=== PATIENT | male | born 1970 | race Caucasian/White ===

== ENCOUNTER 2022-04-16 13:30 | Emergency (ER) | payer SELFPAY ==
--- OUTSIDE RECORDS SUMMARY | 2022-04-16 13:33 | XMS REPORT | Continuity of Care Document ---
:1970 Author Organization [facility] t Address [address] [place] [address] Care Team Providers Name Role Phone Pcp, Patient Does Not Have Primary Care Physician UnavailJOIE Noland Attending Clinician Unavailable LESLEE LOMAS Attending Clinician Unavailable MARGARETTE YU Attending Clinician Unavailable LAB69 Attending Clinician Unavailable Margarette Yu MD Attending Clinician [phone] ANSON ARANDA Attending Clinician Unavailable Alisa Del Cid DO Attending Clinician [phone] Tali Duque MD Attending Clinician [phone] LINDSAY LAWSON Attending Clinician Unavailable RAMESH PAIZ Attending Clinician Unavailable ANGIE METZ Attending Clinician Unavailable NU DANIEL Attending Clinician Unavailable DR SARAH FINE Attending Clinician Unavailable DR SARAH FINE Admitting Clinician Unavailable Payers Payer Name Policy Type Policy Number Effective Date Expiration Date S ource Problems This patient has no known problems. Allergies, Adverse Reactions, Alerts This patient has no known allergies or adverse reactions. Family History Family Member Diagnosis Comments Start Date Stop Date Source Natural father Diabetes Marc Hea [facility] Natural father Other [facility] Social History Social Habit Start Date Stop Date Quantity Comments Source History of tobacco Smokes tobacco [facility] use daily History SDMT 2021-11-15 2021-11-15 1 [facility] Alcohol Binge 00:00:00 00:00:00 History SDMT 2021-11-15 2021-11-15 1 [facility] Alcohol Frequency 00:00:00 00:00:00 History SDMT 2021-11-15 2021-11-15 0 [facility] Alcohol Std Drinks 00:00:00 00:00:00 Exposure to 2021-10-14 2021-10-24 Not sure [facility] SARS-CoV-2 (event) 00:00:00 19:02:00 Alcohol intake 2021-06-12 2021-06-12 Current [facility] 00:00:00 00:00:00 non-drinker of alcohol (finding) Cigarettes smoked 2021-05-13 2021-05-13 Shonda Chamorro current (pack per 00:00:00 00:00:00 day) - Reported Cigarette 2021-05-13 2021-05-13 Shonda Chamorro pack-years 00:00:00 00:00:00 Tobacco use and 2021-05-13 2021-05-13 Smokeless tobacco Macario Chamorro exposure 00:00:00 00:00:00 non-user Tobacco Comment 2014-12-24 2014-12-24 8 cigarettes/day [facility] 00:00:00 00:00:00 Sex Ass[birth year] [facility] 00:00:00 00:00:00 Smoking Status Start Date Stop Date Source Ex-smoker 2021-05-13 00:00:00 2021-05-13 00:00:00 Shonda carrilol Never smoked tobacco [facility] Smokes tobacco daily 2014-12-24 00:00:00 [facility] Medications Ordered Filled Start Stop Current Ordering Indication Dosage Frequency Signature Comments Components Source Medication Medication Date Date Medication? Clinician (SIG) Name Name Ely Yes APPLY ONE Robert ellsworth 3-04 (1) Seybold Acetonide 00:00: APPLICATIO 0.1 % 00 N BY mouth/throa DENTAL t Paste ROUTE DAILY NEEDED. Mupirocin Yes Apply 1 Kelse y (BACTROBAN) 2-21 applicatio Se ybold 2 % apply 00:00: n externally 00 topically Ointment 2 times daily APPLY TO AFFECTED AREA Amoxicillin Yes TAKE 1 Misa ey -Pot 2-21 TABLET Seybold Clavulanate 00:00: EVERY 12 875-125 MG 00 HOURS BY oral Tablet ORAL ROUTE FOR 7 DAYS. Ivermectin Yes TAKE FOUR Ke lsey 3 MG oral 2-07 (4) Seybold Tablet 00:00: TABLETS BY 00 MOUTH ONCE A DAY ON DAYS 1, 2, 8, 9, 15. clotrimazol 2022- No Apply to M ethodi e 03-[address] (LOTRIMIN) 00:00: 05:59 area [facility] % cream 00 :00 times l daily clotrimazol 2022- No Apply to M ethodi e 03-[address] (LOTRIMIN) 00:00: 05:59 area [facility] 1 % cream 00 :00 times l daily Acyclovir Yes 400mg Take 400 Brian sey 400 MG oral 1-29 mg by Seybold Tablet 00:00: mouth 3 00 times daily TRIMETHOPRI Yes TAKE ONE Ke lsey M-SULFAMETH 1-29 TABLET BY sebastián bold OXAZOLE 00:00: MOUTH 800-160 MG 00 TWICE A oral Tablet DAY (FOR INFECTION) lisinopril 2014-02 Yes Medication 20mg QD Take 1 Marc (PRINIVIL) 1-12 refill tablet by alth 20 mg 00:00: mouth tablet 00 daily. acetaminoph 2014-02 Yes Nonintracta 500mg Take 1 Marc en 1-12 ble tablet by [facility] (TYLENOL) 00:00: headache, mouth 500 mg 00 unspecified every 6 tablet chronicity hours as pattern, needed for unspecified Pain. headache type lisinopril 2014-02 Yes [id number] 20mg QD Take 1 Marc (PRINIVIL) 1-12 tablet by [facility] th 20 mg 00:00: mouth tablet 00 daily. acetaminoph 2014-02 Yes [id number] 500mg Take 1 Marc en 1-12 tablet by [facility] (TYLENOL) 00:00: mouth 500 mg 00 every 6 tablet hours as needed for Pain. Vital Signs Vital Name Observation Time Observation Value Comments Source Systolic blood 2021-10-21 151 mm[Hg] Notified RAKESH Marc [facility] pressure 17:50:00 (Fariba) about BP Diastolic blood 2021-10-21 102 mm[Hg] Notified RAKESH Marc [facility] h pressure 17:50:00 (Fariba) about BP Heart rate 2021-10-21 81 /min [facility] 17:50:00 Body temperature 2021-10-21 36.56 Cathy [facility] 17:50:00 Respiratory rate 2021-10-21 18 /min [facility] 17:50:00 Oxygen saturation 2021-10-21 99 /min [facility] in Arterial blood 17:50:00 by Pulse oximetry Body height 2021-10-21 167.6 cm [facility] 13:35:00 Body weight 2021-10-21 72.576 kg [facility] 13:35:00 BMI 2021-10-21 25.82 kg/m2 [facility] 13:35:00 Systolic blood 2021-10-21 151 mm[Hg] Notified RAKESH [facility] pressure 17:50:00 (Fariba) about BP Diastolic blood 2021-10-21 102 mm[Hg] Notified RAKESH Marc [facility] h pressure 17:50:00 (Fariba) about BP Heart rate 2021-10-21 81 /min [facility] 17:50:00 Body temperature 2021-10-21 36.56 Cathy [facility] 17:50:00 Respiratory rate 2021-10-21 18 /min [facility] 17:50:00 Oxygen saturation 2021-10-21 99 /min [facility] in Arterial blood 17:50:00 by Pulse oximetry Body height 2021-10-21 167.6 cm [facility] 13:35:00 Body weight 2021-10-21 72.576 kg [facility] 13:35:00 BMI 2021-10-21 25.82 kg/m2 [facility] 13:35:00 Systolic blood 2021-05-13 138 mm[Hg] Shonda Conner d pressure 15:16:00 Diastolic blood 2021-05-13 80 mm[Hg] Shonda Beaulieu ld pressure 15:16:00 Heart rate 2021-05-13 102 /min Shonda [facility] 15:16:00 Body temperature 2021-05-13 36.72 Cathy Shonda [facility]illi[facility] 15:16:00 Respiratory rate 2021-05-13 17 /min Shonda Mcwilliams old 15:16:00 Body height 2021-05-13 167.6 cm Shonda Chamorro 15:16:00 Body weight 2021-05-13 68.856 kg Shonda Chamorro 15:16:00 BMI 2021-05-13 24.50 kg/m2 Shonda Chamorro 15:16:00 Systolic blood 2021-10-25 168 mm[Hg] RN [facility] pressure 03:21:00 NOTIFIED Diastolic blood 2021-10-25 112 mm[Hg] RN [facility] h pressure 03:21:00 NOTIFIED Heart rate 2021-10-25 89 /min [facility] 03:21:00 Body temperature 2021-10-25 36.67 Cathy [facility] 03:21:00 Respiratory rate 2021-10-25 18 /min [facility] 03:21:00 Oxygen saturation 2021-10-25 100 /min [facility] in Arterial blood 03:21:00 by Pulse oximetry Body height 2021-10-24 167.6 cm [facility] 19:06:00 Body weight 2021-10-24 72.6 kg [facility] 19:06:00 BMI 2021-10-24 25.83 kg/m2 [facility] 19:06:00 Systolic blood 2021-03-21 156 mm[Hg] [facility] pressure 05:28:00 Hospital Diastolic blood 2021-03-21 92 mm[Hg] [facility] pressure 05:28:00 Hospital Heart rate 2021-03-21 98 /min [facility] 05:28:00 Hospital Body temperature 2021-03-21 36.61 Cathy [facility] 05:28:00 Hospital Respiratory rate 2021-03-21 18 /min [facility] 05:28:00 Hospital Oxygen saturation 2021-03-21 99 /min [facility] in Arterial blood 05:28:00 Hospital by Pulse oximetry Body height 2021-03-21 167.6 cm [facility] 04:54:00 Hospital Body weight 2021-03-21 68.04 kg [facility] 04:54:00 Hospital BMI 2021-03-21 24.21 kg/m2 [facility] 04:54:00 Hospital Procedures Procedure Date / Time Performed Performing Clinician Sourscar vega ED REFERRAL TO [place] 2021-03-08 11:01:42 Tali Duque [facility] [employer] Plan of Care Planned Activity Planned Date Details Comments Source Future Scheduled Test 2021-11-12 00:00:00 IMM Influenza [facility] Seasonal (>/= 19 yrs) [code = IMM Influenza Seasonal (>/= 19 yrs)] Future Scheduled Test 2019-12-14 00:00:00 Screening for [facility] malignant neoplasm of colon (procedure) [code = 446373904] Future Scheduled Test 1971-06-12 00:00:00 COVID-19 Vaccine (#1) [facility] [code = COVID-19 Vaccine (#1)] Future Scheduled Test 1970 00:00:00 Fluoride Varnish [facility] [code = Fluoride Varnish] Encounters Start End Encounter Admission Attending Care Care Encounter Source Date/Time Date/Time Type Type Clinicians Facility Department ID 2021-10-27 Outpatient [facility] [id number] [place] 15:18:24 [id number] [facility] 2021-10-06 Outpatient SBC [facility] [id number] 08:49:03 [id number] [facility] 2021-09-28 Outpatient [facility] [id number] 08:16:03 [facility] 2021-10-26 2021-10-28 Emergency E PATY CRUZITO [facility] [id number] [place] 17:29:00 18:29:00 JOIE jackson 2021-10-24 2021-10-25 Emergency [facility] [id number] [place] 19:07:42 08:39:00 [facility] 2021-10-21 2021-10-21 Emergency DAKOTAH ARUNA [id number] [place] 13:33:00 23:41:00 GENERAL 350.1.13.43 [facility] .[id number] 2021-10-21 Emergency [facility] [id number] [place] 13:33:00 23:41:00 [facility] 2021-07-14 2021-07-14 Emergency E ABEBE [facility] [id number] [place] 05:43:00 06:36:00 LESLEE jackson 2021-06-02 2021-06-02 Outpatient PRASHANT-LATI SHONDA MORILLO [id number] Sh[place] 00:00:00 00:00:00 TODD, Seybol d MARGARETTE 2021-05-30 2021-05-30 Outpatient PRASHANT-LATI SHONDA MORILLO [id number] Shonda 00:00:00 00:00:00 TODD, Seybol d MARGARETTE 2021-05-19 2021-05-19 Outpatient LAB69 SHONDA MORILLO [id number] [place] 15:50:00 15:50:00 Seybol d 2021-05-17 2021-05-17 Outpatient PRASHANT-LATI SHONDA MORILLO [id number] Shonda 00:00:00 00:00:00 TODD, Seybol d MARGARETTE 2021-05-13 2021-05-13 Outpatient LAB69 SHONDA MORILLO [id number] [place] 11:45:00 11:45:00 Seybol d 2021-05-13 2021-05-13 Office Prashant-Shalini [place] [id number] Shonda 10:30:00 11:30:00 Visit Grand todd 350.1.13.13 Se jose Pfeiffer [place] 1.2.7.2.686 [id number] 2021-04-07 2021-04-07 Emergency E MANOJ [facility] [id number] 12:30:00 16:16:00 ANSON jackson [facility] 2021-03-20 2021-03-20 Emergency Nehemias Alisamiguelangel Jarquin [id number] Methodi 22:56:00 23:30:[address] Duque [id number] 3.430.2.7 Hospit a .3.414984 l .8 2021-03-20 2021-03-20 Travel 1.2.840.1 [id number] Methodi 00:00:00 00:00:[address] 3.430.2.7 0.2.7.3.698 Ho spita .[id number] 084.8 l .8 2021-03-08 2021-03-08 Emergency Dunia, 1.2.840.1 [id number] [facility] 04:07:00 05:14:[address] [facility] 3.430.2.7 Hospit a .[id number] l .8 2020-08-08 2020-08-08 Emergency E RENNY, [facility] [address] 08:57:00 10:44:00 LINDSAY Ordoñez l [facility] 2020-08-03 2020-08-03 Emergency CHENCHO, [facility] [id number] [place] 00:00:00 00:00:00 AATIF 398 Method i 2020-07-31 2020-07-31 Emergency [place] [id number] [place] 00:00:00 00:00:00 546 Method i 2020-07-30 2020-07-30 Emergency [place] [id number] [place] 00:00:00 00:00:00 764 Method i 2020-07-18 2020-07-18 Emergency E LASHAY [facility] [id number] [place] 05:23:00 06:35:00 ANGIE Ordoñez l 2020-04-07 2020-04-07 Emergency E FREDY [facility] [id number] [place] 08:06:00 09:42:00 NU Ordoñez l 2016-06-04 2016-06-04 Emergency E SARAH FINE [facility] [id number] [place] 03:02:00 05:10:00 Medica l Center Results Test Description Test Time Test Comments Results Result Comments Source DRUGS OF ABUSE 2016-06-04 05:09:00 Test Item Value Reference Range Interpretation Comme nts DRUG SCRN (test code = HDOA) URINE DRUG SCREEN This is an unconfirmed screening result and should not be used for non-medical purposes CANNABINOD (test code = 88C) Negative NEGATIVE AMPHETHETM (test code = 84A) Negative NEGATIVE BENZODIAZP (test code = 86A) Negative NEGATIVE BARBITURAT (test code = 85A) Negative NEGATIVE OPIATES (test code = 92B) Negative NEGATIVE COCAINE (test code = 87A) POSITIVE NEGATIVE A PHENCYCLID (test code = 66A) Negative NEGATIVE METHADONE (test code = 64A) Negative NEGATIVE DOAH (test code = DOAH) URINE DRUG SCREEN Cut-off values are as follows: Cannabinoids 50 ng/mL Cocaine 300 ng/mL Amphetamines 1000 ng/mL Phencyclidine 25 ng/mL Benzodiazepines 200 ng.mL Methadone 300 ng/mL Barbiturates 200 ng/mL Opiates 2000 ng/mL [id number] 05:06:00 Test Item Value Reference Range Interpretation Comments COLOR (test code = COLU) YELLOW YELLOW CLARITY (test code = CLA) CLEAR CLEAR GLUCOSE UR (test code = UA GLUCOSE) NEGATIVE NEGATIVE BILI UR (test code = BILE) NEGATIVE NEGATIVE KETONES UR (test code = JENY) NEGATIVE NEGATIVE SP GRAVITY (test code = SPGR) 1.012 1.005-1.030 PH UR (test code = PH) 6.0 4.5-8.0 PROTEIN UR (test code = PU) NEGATIVE NEGATIVE UROBIL UR (test code = UROQ) 1.0 EU/dL 0.2-1.0 NITRITE UR (test code = NITRITE) NEGATIVE NEGATIVE BLOOD UR (test code = UA BLOOD) NEGATIVE NEGATIVE LEUK ES UR (test code = LEUK) NEGATIVE NEGATIVE ALCOHOL BLOOD (ETOH)2016-06-04 04:26:00 Test Item Value Reference Range Interpretation Comments ALCOHOL (test code = <10 mg/dL <=10 56A) Ref Range Change (test Please note the code = REF RANGE) change in reference range COMPREHENSIVE METABOLIC [id number] 04:26:00 Test Item Value Reference Range Interpretation Comments GLUCOSE (test code = 06D) 100 mg/dL 75-100 SODIUM (test code = 01A) 138 mmol/L 136-145 POTASSIUM (test code = 01B) 3.2 mmol/L 3.6-5.1 L CHLORIDE (test code = 04A) 105 mmol/L 98-107 CO2 (test code = 02A) 25 mmol/L 22-32 ANION GAP (test code = ANG) 11.2 mmol/L BUN (test code = 05D) 13 mg/dL 7-18 CREATININE (test code = 03E) 1.0 mg/dL 0.7-1.3 BUN/CREA R (test code = BCR) 13 12-20 CALCIUM (test code = 09D) 8.7 mg/dL 8.3-9.5 BILI TOTAL (test code = 11A) 0.5 mg/dL 0.2-1.0 PROTEIN (test code = 07D) 6.8 g/dL 6.4-8.2 ALBUMIN (test code = 08D) 4.1 g/dL 3.5-4.8 GLOBULIN (test code = GLB) 2.7 g/dL 1.5-3.8 ALB/GLOB (test code = AGRR) 1.5 1.0-2.6 ALK PHOS (test code = 35A) 84 IU/L 42-121 AST (test code = 30A) 14 IU/L <=42 ALT (test code = 31A) 13 IU/L <=78 CARDIAC [id number] 04:20:00 Test Item Value Reference Range Interpretation Comments TROPONIN I (test code = A84) <0.015 ng/mL 0.000-0.045 CKMB (test code = A49) 2.9 ng/mL <=3.6 CPK (test code = 32A) 119 IU/L 39-308 [id number] 04:04:00 Test Item Value Reference Range Interpretation Comments D-DIMER (test code = <200 ng/mL D-DU 0-234 DDI) D-DIMER COMMENT (test *Level to rule out code = DDCOM) DVT or PE: <235 ng/mL D-DU* PRO TIME AND [id number] 04:04:00 Test Item Value Reference Range Interpretation Comments PT (test code = 12.0 s 9.8-13.6 TT) INR (test code = 1.1 INR) INRH (test code = SUGGESTED THERAPEUTIC INRH) RANGE FOR INR: 2.5 - 3.5 For Patients with Prosthetic Valves or Patients with recurrent Thromboembolic Events 2.0 - 3.0 For Most Other Applications PTT (test code = 33.1 s 20.2-38.0 PTT) PTTH (test code = To monitor the PTTH) effectiveness of heparin, we offer the Anti-Xa (Heparin Assay). It can be used for either unfractinated or LMW Heparin. Order Code is ANTI-XA CBC (INCLUDES AUTOMATED DIFFERENTIAL)2016-06-04 03:56:00 Test Item Value Reference Range Interpretation Comments WBC (test code = WBC) 8.2 10\S\3/uL 4.5-11.0 RBC (test code = RBC) 3.86 10\S\6/uL 4.20-5.60 L HGB (test code = HBG) 12.3 g/dL 14.0-18.0 L HCT (test code = HCT) 35.5 % 35.0-46.0 MCV (test code = MCV) 92.0 fL 80.0-94.0 MCH (test code = MCH) 31.9 pg 27.0-31.0 H MCHC (test code = MCHC) 34.6 g/dL 32.0-36.0 RDW (test code = RDW) 12.6 % 11.5-14.5 PLT (test code = PLT) 242 10\S\3/uL 130-400 MPV (test code = MPV) 9.2 fL 9.4-12.4 L NEUTROP # (test code = NE#) 4.9 10\S\3/uL 2.0-8.0 LYMPH # (test code = LY#) 2.4 10\S\3/uL 1.2-4.0 MONOCYTE # (test code = MO#) 0.5 10\S\3/uL 0.0-1.1 EOSINOPH # (test code = EO#) 0.3 10\S\3/uL 0.0-0.7 BASOPHIL # (test code = BA#) 0.0 10\S\3/uL 0.0-0.3 IG # (test code = IG#) 0.01 10\S\3/uL 0.00-0.06 NRBC # (test code = NRBC#) 0.00 10\S\3/uL 0.00-0.01 NEUTROPH % (test code = NE%) 60.4 % 35.0-73.0 LYMPH % (test code = LY%) 29.3 % 20.0-55.0 MONO % (test code = MO%) 6.6 % 2.5-10.0 EOSINOPH % (test code = EO%) 3.1 % 0.0-5.0 BASOPHIL % (test code = BA%) 0.5 % 0.0-2.0 IG % (test code = IG%) 0.1 % 0.0-0.8 NRBC% (test code = NRBC%) 0.0 % 0.0-0.2 MANDIFF (test code = MDIFF) NO NO RBC MORPH (test code = RBCMOR) NORMAL XR CHEST 1 VIEW [id number] 03:42:38CHEST RADIOGRAPH: After hours services performed at 0327 hours. LOCATION: [id number]: Chest pain.C OMPARISON: 12/30/15.TECHNIQUE: Single portable AP radiograph of the chest.FINDINGS:No focal airspaceconsolidation or pneumothorax is visualized. Thecardiomediastinal silhouette is normal.IMPRESSION:Noacute cardiopulmonary disease.
--- NOTE | 2022-04-16 14:02 | EDPHYS ---
Physician Documentation [facility] Name: Blue Rodriguez Age: 51 yrs Sex: Male : 1970 Arrival Date: 04/16/2022 Time: 13:32 Bed 11 Private MD: ED Physician Som Murillo HPI: 04/16 13:57 This 51 yrs old Male presents to ER via Ambulatory with complaints of toothache. en 13:57 51-year-old male presents to ED with right sided maxillary dental pain. Patient has en upper dentures that are not fitting correctly and rubbing upper side of his mouth. Reports pain to the right side of the maxilla radiating up into his cheek. No fevers or chills. No facial swelling. No trouble opening or closing his mouth. Historical: - Allergies: 13:42 No Known Allergies; jl7 - Home Meds: 13:42 None [Active]; jl7 - PMHx: 13:42 None; jl7 - PSHx: 13:42 None; jl7 - Immunization history:: Adult Immunizations not up to date. - Social history:: Smoking status: Patient denies any tobacco usage or history of. ROS: 13:57 Constitutional: Negative for fever, chills, and weight loss. en 13:57 ENT: Positive for Teeth pain 13:57 All other systems are negative. Exam: 13:57 Constitutional: This is a well developed, well nourished patient who is awake, alert, en and in no acute distress. Head/Face: No facial swelling, erythema ENT: Airway patent, mucous membranes moist. No trismus. Patient with upper dentures that are slightly loose. Unable to evaluate the maxillary teeth bed secondary to the dentures but no abscess to the gumline appreciated and no induration above the cheek Cardiovascular: Regular rate and rhythm with a normal S1 and S2. No gallops, murmurs, or rubs. Normal PMI, no JVD. No pulse deficits. Respiratory: Lungs have equal breath sounds bilaterally, clear to auscultation and percussion. No rales, rhonchi or wheezes noted. No increased work of breathing, no retractions or nasal flaring. Vital Signs: 13:41 BP 146 / 89; Pulse 96; Resp 17 S; Temp 98.5(O); Pulse Ox 100% on R/A; Weight 72.57 kg; jl7 Height 5 ft. 6 in. (167.64 cm); Pain 10/10; 13:41 Body Mass Index 25.82 (72.57 kg, 167.64 cm) jl7 MDM: 13:52 Patient medically screened. en 13:57 Differential diagnosis: Abdominal to genic abscess versus other infection created from en malfitting dentures versus irritation from the dentures. Data reviewed: vital signs, nurses notes, and as a result, I will discharge patient. ED course: Spoke with patient regarding need to follow-up with dentist and to avoid placing dentures and until able to follow-up. Will give dose of antibiotics in the ED to treat occult infection.. Administered Medications: 14:02 Drug: Tylenol 1000 mg Route: PO; 7 14:02 Follow up: Response: No adverse reaction; Medication administered at discharge. jl7 14:02 Drug: Amoxicillin 500 mg Route: PO; 7 14:02 Follow up: Response: Medication administered at discharge. 7 Disposition: 14:22 Co-signature as Attending Physician, Som Murillo MD I agree with the assessment and kdr plan of care. Disposition Summary: 04/16/22 14:01 Discharge Ordered Location: Home en Condition: Stable en Diagnosis - Dental pain en Followup: en - With: Private Physician - When: 1 - 2 days - Reason: Re-evaluation by your physician Discharge Instructions: - Discharge Summary Sheet en - Dental Pain en Forms: - Medication Reconciliation Form en - Thank You Letter en - Antibiotic Education en - Prescription Opioid Use en Prescriptions: - Amoxicillin 500 mg Oral Capsule - take 1 capsule by ORAL route every 8 hours for 10 days; 30 tablet; Refills: 0, en Product Selection Permitted - Ibuprofen 800 mg Oral Tablet - take 1 tablet by ORAL route every 8 hours As needed take with food; 30 tablet; en Refills: 0, Product Selection Permitted Signatures: Som Murillo MD MD kdr Leal, Jahala, RN RN jl7 Janiya Gramajo PA PA en
--- NOTE | 2022-04-16 14:02 | ER ---
Nurse's Notes [facility] Name: Blue Rodriguez Age: 51 yrs Sex: Male : 1970 Arrival Date: 04/16/2022 Time: 13:32 Bed 11 Private MD: Diagnosis: Dental pain Presentation: 04/16 13:41 Chief complaint: Patient states: Abscess tooth to right upper jaw, pain since Sunday. jl7 Coronavirus screen: At this time, the client does not indicate any symptoms associated with coronavirus-19. Ebola Screen: No symptoms or risks identified at this time. Initial Sepsis Screen: Does the patient meet any 2 criteria? No. Patient's initial sepsis screen is negative. Does the patient have a suspected source of infection? No. Patient's initial sepsis screen is negative. Risk Assessment: Do you want to hurt yourself or someone else? Patient reports no desire to harm self or others. Onset of symptoms was April 14, 2022. 13:41 Method Of Arrival: Ambulatory jl7 13:41 Acuity: KYUNG 4 jl7 Triage Assessment: 13:42 General: Appears in no apparent distress. uncomfortable, Behavior is calm, cooperative, jl7 appropriate for age. Pain: Complains of pain in mouth Pain currently is 10 out of 10 on a pain scale. Historical: - Allergies: 13:42 No Known Allergies; jl7 - Home Meds: 13:42 None [Active]; jl7 - PMHx: 13:42 None; jl7 - PSHx: 13:42 None; jl7 - Immunization history:: Adult Immunizations not up to date. - Social history:: Smoking status: Patient denies any tobacco usage or history of. Screenin:02 [facility] ED Fall Risk Assessment (Adult) History of falling in the last 3 months, jl7 including since admission No falls in past 3 months (0 pts). Abuse screen: Denies threats or abuse. Denies injuries from another. Nutritional screening: No deficits noted. Tuberculosis screening: No symptoms or risk factors identified. Assessment: 13:40 General: See triage. jl7 14:16 Reassessment: Pt requested for ERP to write a Rx for a few tramadol to get through jl7 until he can see the dentist, ERP notified and reports she does not write pain medications for tooth pain. Pt updated and verbalized understanding. Vital Signs: 13:41 BP 146 / 89; Pulse 96; Resp 17 S; Temp 98.5(O); Pulse Ox 100% on R/A; Weight 72.57 kg; jl7 Height 5 ft. 6 in. (167.64 cm); Pain 10/10; 13:41 Body Mass Index 25.82 (72.57 kg, 167.64 cm) jl7 ED Course: 13:32 Patient arrived in ED. am2 13:41 Richard Lopez RN is Primary Nurse. jl7 13:41 Janiya Gramajo PA is PHCP. en 13:41 Som Murillo MD is Attending Physician. en 13:42 Triage completed. jl7 13:42 Arm band placed on right wrist. jl7 14:02 Patient has correct armband on for positive identification. jl7 14:02 No provider procedures requiring assistance completed. Patient did not have IV access jl7 during this emergency room visit. Administered Medications: 14:02 Drug: Tylenol 1000 mg Route: PO; jl7 14:02 Follow up: Response: No adverse reaction; Medication administered at discharge. jl7 14:02 Drug: Amoxicillin 500 mg Route: PO; jl7 14:02 Follow up: Response: Medication administered at discharge. jl7 Medication: 14:02 VIS not applicable for this client. jl7 Outcome: 14:01 Discharge ordered by . en 14:16 Discharged to home ambulatory. jl7 14:16 Condition: stable 14:16 Discharge instructions given to patient, Instructed on discharge instructions, follow up and referral plans. medication usage, Demonstrated understanding of instructions, follow-up care, medications, Prescriptions given X 2. 14:18 Patient left the ED. jl7 Signatures: Richard Lopez RN RN jl7 Linette Miranda am2 Janiya Gramajo PA PA en
[2022-04-16] MEDS ORDERED: ACETAMINOPHEN 500 MG TAB ONE (14:03)
[2022-04-16] MEDS ORDERED: AMOXICILLIN TRIHYDR 250 MG CAP ONE (14:03)
[2022-04-16 14:23] VITALS: BP 146/89; TEMP 98.5; O2SAT 100
== END 2022-04-16 14:18 | disposition home or self-care (01) ==
LOC: ER 13:30
DX: K08.89 Other specified disorders of teeth and supporting structures (principal)
CPT/HCPCS: 99283

== ENCOUNTER 2022-11-27 21:46 | Emergency (ER) | payer SELFPAY ==
--- OUTSIDE RECORDS SUMMARY | 2022-11-27 22:09 | XMS REPORT | Continuity of Care Document ---
:1970 Author Organization [facility] t Address [address] [place] [address] Care Team Providers Name Role Phone Group[facility] [phone] VIOLETA PRESTON Attending Clinician Unavailable JOIE NEWMAN Attending Clinician Unavailable LESLEE LOMAS Attending Clinician Unavailable MARGARETTE YU Attending Clinician Unavailable LAB69 Attending Clinician Unavailable Margarette Yu MD Attending Clinician [phone] ANSON ARANDA Attending Clinician Unavailable Alisa Del Cid DO Attending Clinician [phone] Tali Duque MD Attending Clinician [phone] LINDSAY LAWSON Attending Clinician Unavailable RAMESH PAIZ Attending Clinician Unavailable ANGIE METZ Attending Clinician Unavailable NU DANIEL Attending Clinician Unavailable DR SARAH FINE Attending Clinician Unavailable DR SRAAH FINE Admitting Clinician Unavailable Payers Payer Name Policy Type Policy Number Effective Date Expiration Date S ource Problems Condition Condition Condition Status Onset Resolution Last Treating Co mments Source Name Details Category Date Date Treatment Clinician Date Opiate Opiate Disease Active Marc dependence dependence 08-28 He alth , , 00:00: continuous continuous 00 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 Family History Family Member Diagnosis Comments Start Date Stop Date Source Natural mother Hypertension [facility] Natural sister Alcohol/Drug [place] [facility] Natural sister Drug abuse [facility] Natural father Diabetes [facility] Natural father Other [facility] Natural father Hypertension [place] [facility] Natural brother Bipolar disorder [facility] Natural brother Diabetes [facility] Natural brother Alcohol/Drug [facility] Natural brother Drug abuse [place] [facility] Maternal aunt Cancer [facility] Maternal uncle Cancer [place] [facility] Social History Social Habit Start Date Stop Date Quantity Comments Source History of tobacco Cigarette Smoker [facility] use Sexual orientation Method [facility] Cigarettes smoked 2021-11-15 2021-11-15 [facility] current (pack per 00:00:00 00:00:00 day) - Reported Cigarette 2021-11-15 2021-11-15 [facility] pack-years 00:00:00 00:00:00 Tobacco use and 2021-11-15 2021-11-15 Smokeless [facility] alth exposure 00:00:00 00:00:00 tobacco non-user History [facility] 2021-11-15 2021-11-15 1 formerly [facility] Alcohol Frequency 00:00:00 00:00:00 History [facility] 2021-11-15 2021-11-15 0 formerly [facility] Alcohol Std Drinks 00:00:00 00:00:00 History [facility] 2021-11-15 2021-11-15 1 formerly [facility] Alcohol Binge 00:00:00 00:00:00 Alcohol Comment 2021-11-15 2021-11-15 Sober x25 years [facility] 00:00:00 00:00:00 Exposure to 2021-10-11 2021-10-21 Not sure [facility] SARS-CoV-2 (event) 00:00:00 13:33:00 Alcohol intake 2021-03-20 2021-03-20 [facility] 00:00:00 00:00:00 non-drinker Hospital (finding) History of Social 2021-03-20 2021-03-[address] function 00:00:00 00:00:00 Hospital Tobacco Comment 2014-12-24 2014-12-24 8 cigarettes/day Hermelindo [facility] 00:00:00 00:00:00 Sex Ass[birth year] At [birth year] [facility] 00:00:00 00:00:00 [facility] Smoking Status Start Date Stop Date Source Ex-smoker 2021-05-13 00:00:00 2021-05-13 00:00:00 Shonda carrillo Never smoked tobacco [facility] Smokes tobacco daily 2014-12-24 00:00:00 [facility] Medications Ordered Filled Start Stop Current Ordering Indication Dosage Frequency Signature Comments Components Source Medication Medication Date Date Medication? Clinician (SIG) Name Name venlafaxine Yes Other 37.5mg Q.5D Take 1 H arris (EFFEXOR) 2-10 depression tablet by [employer] 37.5 mg 00:00: mouth 2 tablet 00 times daily hydrOXYzine Yes Unspecified 25mg Take 1 Vtap (ATARAX) 25 2-10 psychosis tablet by [facility] mg tablet 00:00: not due to mouth 00 a substance every 6 or known hours as physiologic needed for al Anxiety condition diphenhydrA Yes Unspecified 50mg Take 1 [place] MINE 2-10 psychosis capsule by [facility] (BENADRYL) 00:00: not due to mouth 50 mg 00 a substance nightly at capsule or known bedtime as physiologic needed al (Sleep and condition EPS prophylaxi s) risperiDONE Yes Unspecified .5mg Take 1 [facility]tap (RISPERDAL) 2-10 psychosis tablet by [facility] 0.5 mg 00:00: not due to mouth at tablet 00 a substance bedtime or known nightly physiologic al condition hydrOXYzine 2022- No Unspecified 25mg Take 1 Vtap (ATARAX) 25 1-06 02-10 psychosis tablet by [employer] mg tablet 00:00: 00:00 not due to mouth 00 :00 a substance every 6 or known hours as physiologic needed for al Anxiety condition diphenhydrA 2022- No Unspecified 50mg Take 1 Vtap MINE 02-17 psychosis capsule by [facility] (BENADRYL) 00:00: 00:00 not due to mouth 50 mg 00 :00 a substance nightly at capsule or known bedtime as physiologic needed al (Sleep and condition EPS prophylaxi s) risperiDONE 2022- No Unspecified 1.5mg Take 1.5 Marc (RISPERDAL) 02-17 psychosis tablets by [employer] 1 mg tablet 00:00: 00:00 not due to mouth at 00 :00 a substance bedtime or known nightly physiologic al condition buPROPion 2022- No Unspecified 150mg Take 1 Marc (WELLBUTRIN 02-17 psychosis tablet by Health XL) 150 mg 00:00: 00:00 not due to mouth extended 00 :00 a substance every release or known morning tablet physiologic al condition risperiDONE 2021-02- No Unspecified 2mg Take 1 Marc (RISPERDAL) 02-18 psychosis tablet by [employer] 2 mg tablet 00:00: 00:00 not due to mouth at 00 :00 a substance bedtime or known nightly physiologic al condition diphenhydrA 2021-02- No Unspecified 50mg Take 1 [employer] 02-18 psychosis capsule by [facility] (BENADRYL) 00:00: 00:00 not due to mouth 50 mg 00 :00 a substance nightly at capsule or known bedtime as physiologic needed al (Sleep and condition EPS prophylaxi s) hydrOXYzine 2021-02- No Unspecified 25mg Take 1 Marc (ATARAX) 25 02-18 psychosis tablet by Health mg tablet 00:00: 00:00 not due to mouth 00 :00 a substance every 6 or known hours as physiologic needed for al Anxiety condition risperiDONE 2021-02- No Unspecified 2mg Take 1 Marc (RISPERDAL) 12-19 psychosis tablet by [employer] 2 mg tablet 00:00: 00:00 not due to mouth at 00 :00 a substance bedtime or known nightly physiologic al condition diphenhydrA 2021-02- No Unspecified 50mg Take 1 [employer] 12-19 psychosis capsule by [facility] (BENADRYL) 00:00: 00:00 not due to mouth 50 mg 00 :00 a substance nightly at capsule or known bedtime as physiologic needed al (Sleep and condition EPS prophylaxi s) Triamcinolo Yes APPLY ONE K elsey ne 3-04 (1) Seybold Acetonide 00:00: APPLICATIO 0.1 [...] daily clotrimazol 2022- No [facility] (LOTRIMIN) 00:00: 05:59 area 2 [facility] % cream 00 :00 times l daily Acyclovir Yes 400mg Take 400 Brian sey 400 MG oral 1-29 mg by Seybold Tablet 00:00: mouth 3 00 times daily TRIMETHOPRI Yes TAKE ONE Ke lsey M-SULFAMETH 1-29 TABLET BY Sey bold OXAZOLE 00:00: MOUTH 800-160 MG 00 TWICE A oral Tablet DAY (FOR INFECTION) lisinopril 2014-02 Yes [id number] 20mg QD Take 1 Marc (PRINIVIL) 1-12 tablet by [facility] 20 mg 00:00: mouth tablet 00 daily. acetaminoph 2014-02 Yes [id number] 500mg Take 1 Marc en 1-12 tablet by [facility] (TYLENOL) 00:00: mouth 500 mg 00 every 6 tablet hours as needed for Pain. lisinopril 2014-02 Yes [id number] 20mg QD Take 1 Marc (PRINIVIL) 1-12 tablet by [facility] 20 mg 00:00: mouth tablet 00 daily. acetaminoph 2014-02 Yes [id number] 500mg Take 1 Marc en 1-12 tablet by [facility] (TYLENOL) 00:00: mouth 500 mg 00 every 6 tablet hours as needed for Pain. lisinopril 2014-02 Yes Medication 20mg QD Take 1 Marc (PRINIVIL) 1-12 refill tablet by alth 20 mg 00:00: mouth tablet 00 daily. acetaminoph 2014-02 Yes Nonintracta 500mg Take 1 Marc en 1-12 ble tablet by [facility] (TYLENOL) 00:00: headache, mouth 500 mg 00 unspecified every 6 tablet chronicity hours as pattern, needed for unspecified Pain. headache type lisinopril 2014-02 Yes Medication 20mg QD Take 1 Marc (PRINIVIL) 1-12 refill tablet by alth 20 mg 00:00: mouth tablet 00 daily. acetaminoph 2014-02 Yes Nonintracta 500mg Take 1 Marc en 1-12 ble tablet by [facility] (TYLENOL) 00:00: headache, mouth 500 mg 00 unspecified every 6 tablet chronicity hours as pattern, needed for unspecified Pain. headache type Vital Signs Vital Name Observation Time Observation Value Comments Source Oxygen saturation 2021-10-25 100 /min [facility] in Arterial blood 03:21:00 by Pulse oximetry Systolic blood 2021-10-25 168 mm[Hg] RAKESH QUIGLEY [facility] pressure 03:21:00 NOTIFIED Diastolic blood 2021-10-25 112 mm[Hg] RAKESH QUIGLEY [facility] h pressure 03:21:00 NOTIFIED Heart rate 2021-10-25 89 /min [facility] 03:21:00 Body temperature 2021-10-25 36.67 Cathy [facility] 03:21:00 Respiratory rate 2021-10-25 18 /min [facility] 03:21:00 Body height 2021-10-24 167.6 cm [facility] 19:06:00 Body weight 2021-10-24 72.6 kg [facility] 19:06:00 BMI 2021-10-24 25.83 kg/m2 [facility] 19:06:00 Systolic blood 2021-10-21 151 mm[Hg] Notified RAKESH [facility] pressure 17:50:00 (Fariba) about BP Diastolic blood 2021-10-21 102 mm[Hg] Notified RAKESH [facility] h pressure 17:50:00 (Fariba) about BP Heart rate 2021-10-21 81 /min [facility] 17:50:00 Body temperature 2021-10-21 36.56 Cathy [facility] 17:50:00 Respiratory rate 2021-10-21 18 /min [facility] 17:50:00 Oxygen saturation 2021-10-21 99 [facility] 17:50:00 by Pulse oximetry Body height 2021-10-21 167.6 cm [facility] 13:35:00 Body weight 2021-10-21 72.576 kg [facility] 13:35:00 BMI 2021-10-21 25.82 kg/m2 [facility] 13:35:00 Systolic blood 2021-05-13 138 mm[Hg] Shonda Seybol d pressure 15:16:00 Diastolic blood 2021-05-13 80 mm[Hg] Shonda Seybo ld pressure 15:16:00 Heart rate 2021-05-13 102 /min Shonda Seybold 15:16:00 Body temperature 2021-05-13 36.72 Cathy Shonda Seyb old 15:16:00 Respiratory rate 2021-05-13 17 /min Shonda Seyb old 15:16:00 Body height 2021-05-13 167.6 cm Shonda Seybold 15:16:00 Body weight 2021-05-13 68.856 kg Shonda Seybold 15:16:00 BMI 2021-05-13 24.50 kg/m2 Shonda Seybold 15:16:00 Systolic blood 2022-03-24 125 mm[Hg] [facility] pressure 09:04:00 Diastolic blood 2022-03-24 91 mm[Hg] [facility] h pressure 09:04:00 Heart rate 2022-03-24 90 /min [facility] 09:04:00 Body temperature 2022-03-24 36.11 Cathy [facility] 09:04:00 Respiratory rate 2022-03-24 18 /min [facility] 09:04:00 Body height 2022-03-24 167.6 cm [facility] 09:04:00 Body weight 2022-03-24 71.215 kg [facility] 09:04:00 BMI 2022-03-24 25.34 kg/m2 [facility] 09:04:00 Systolic blood 2021-10-25 168 mm[Hg] RN [facility] pressure 03:21:00 NOTIFIED Diastolic blood 2021-10-25 112 mm[Hg] RN [facility] pressure 03:21:00 NOTIFIED Heart rate 2021-10-25 89 /min [facility] 03:21:00 Body temperature 2021-10-25 36.67 Cathy [facility] 03:21:00 Respiratory rate 2021-10-25 18 /min [facility] 03:21:00 Oxygen saturation 2021-10-25 100 /[facility] Ar[facility] 03:21:00 by Pulse oximetry Body height 2021-10-24 167.6 cm [facility] 19:06:00 Body weight 2021-10-24 72.6 kg [facility] 19:06:00 BMI 2021-10-24 25.83 kg/m2 [facility] 19:06:00 Systolic blood 2021-03-21 156 mm[Hg] [facility] pressure 05:28:00 [facility] Diastolic blood 2021-03-21 92 mm[Hg] [facility] pressure 05:28:00 Hospital Heart rate 2021-03-21 98 /min [facility] 05:28:00 [facility] Body temperature 2021-03-21 36.61 Cathy [facility] 05:28:00 Hospital Respiratory rate 2021-03-21 18 /min [facility] 05:28:00 Hospital Oxygen saturation 2021-03-21 99 /min [facility] in Arterial blood 05:28:00 Hospital by Pulse oximetry Body height 2021-03-21 167.6 cm [facility] 04:54:00 Hospital Body weight 2021-03-21 68.04 kg [facility] 04:54:00 Hospital BMI 2021-03-21 24.21 kg/m2 [facility] 04:54:00 [facility] Procedures Procedure Date / Time Performing Clinician Source Performed DRUG ABUSE SCREEN 11 2022-03-24 09:04:00 Gerald Rangel [facility] W/ETOH, NO CONF CBC WITH 2021-11-17 11:49:00 Gerald Rangel formerly [facility] DIFFERENTIAL/PLATELET COMPREHENSIVE METABOLIC 2021-11-17 11:49:00 Gerald [facility]angel [facility] PANEL(14) TSH W/ RFX TO FREE T4 2021-11-17 11:49:00 Juan Carlos, [facility] LIPID PANEL 2021-11-17 11:49:00 Juan CarlosGerald jacobson formerly [facility] DRUG ABUSE SCREEN 11 2021-11-17 00:00:00 [facility] W/ETOH, W/CONF AMPHETAMINES, QUANT, 2021-11-17 00:00:00 [facility] URINE OPIATE, QUANT, URINE 2021-11-17 00:00:00 [facility] ED REFERRAL TO [place] 2021-03-08 11:01:42 Tali Duque Formerly [facility] UATSDIN PHYSICIAN [employer] Plan of Care Planned Activity Planned Date Details Comments Source Future Scheduled Test 2021-11-12 IMM Influenza Seasonal [facility] 00:00:00 (>/= 19 yrs) [code = IMM Influenza Seasonal (>/= 19 yrs)] Future Scheduled Test 2021-11-12 IMM Influenza Seasonal [facility] 00:00:00 (>/= 19 yrs) [code = IMM Influenza Seasonal (>/= 19 yrs)] Future Scheduled Test 2019-12-14 Screening for malignant [facility] 00:00:00 neoplasm of colon (procedure) [code = 485708941] Future Scheduled Test 2019-12-14 Screening for malignant [facility] 00:00:00 neoplasm of colon (procedure) [code = 831109912] Future Scheduled Test 1975-12-14 Imm Pneumococcal 0-64 [facility] 00:00:00 (1 - PCV) [code = Imm Pneumococcal 0-64 (1 - PCV)] Future Scheduled Test 1970-[birth year]12 COVID-19 Vaccine (#1) [facility] 00:00:00 [code = COVID-19 Vaccine (#1)] Future Scheduled Test 1970[birth year]12 COVID-19 Vaccine (#1) [facility] 00:00:00 [code = COVID-19 Vaccine (#1)] Future Scheduled Test 1970 Fluoride Varnish [code [facility] 00:00:00 = Fluoride Varnish] Encounters Start End Encounter Admission Attending Care Care Encounter Source Date/Time Date/Time Type Type Clinicians Facility Department ID 2021-10-27 Outpatient [facility] [id number] [place] 15:18:24 [id number] [facility] 2021-10-06 Outpatient [facility] [id number] 08:49:03 [id number] [facility] 2021-09-28 Outpatient [facility] spring 08:16:03 [facility] 2022-09-06 2022-09-06 Emergency ER PRESTON, [facility] [id number] [place] 02:12:00 04:45:00 [id number] 2021-10-26 2021-10-28 Emergency E PATY [facility]UZ[facility]O [facility] [address] 17:29:00 18:29:00 JOIE Ordoñez l 2021-10-24 2021-10-25 Emergency DAKOTAH ARUNA [id number] [place] 19:07:42 08:39:00 GENERAL 350.1.13.43 [facility] .[id number] 0468-09-09 2021-10-21 Emergency DAKOTAH ARUNA [id number] [place] 13:33:00 23:41:00 GENERAL 350.1.13.43 [facility] .[id number] 4178-06-02 2021-07-14 Emergency E ABEBE CRUZITO [facility] [address] 05:43:00 06:36:00 LESLEE Ordoñez l 2021-06-02 2021-06-02 Outpatient PRASAHNT-VINCE MORILLO [id number] [place] 00:00:00 00:00:00 Ubaldo BROOKS 2021-05-30 2021-05-30 Outpatient PRASHANTVINCE MORILLO [id number] [place] 00:00:00 00:00:00 TODD Seybol reggie FRIEDMARGARETTE 2021-05-19 2021-05-19 Outpatient LAB69 SOHNDA MORILLO [id number] [place] 15:50:00 15:50:00 Seybol d 2021-05-17 2021-05-17 Outpatient PRASHANTTESSY MORILLO SHONDA [id number] [place] 00:00:00 00:00:00 TODD Seybol reggie MARGARETTE 2021-05-13 2021-05-13 Outpatient LAB69 SHONDA MORILLO [id number] Shonda 11:45:00 11:45:00 Seybol d 2021-05-13 2021-05-13 Office PrashantVince [facility] [facility] [id number] [place] 10:30:00 11:30:00 Visit [facility].13.13 [facility] [place] 1.2.7.2.686 [id number] 2021-04-07 2021-04-07 Emergency [facility] 12:30:00 16:16:00 [facility] 2021-03-20 2021-03-20 Emergency Del CidAlisa Milka 1.2.840.1 [id number] Methodi 22:56:00 23:30:[address] Du[address] 3.430.2.7 Hospit a .3.887432 l .8 2021-03-20 2021-03-20 Travel 1.2.840.1 [id number] [facility] 00:00:00 00:00:[address] 3.430.2.7 0.2.7.3.698 Ho spita .3.569324 084.8 l .8 2021-03-08 2021-03-08 Emergency Dunia, 1.2.840.1 [id number] Methodi 04:07:00 05:14:00 Tali 80545.1.1 557 [place] 3.430.2.7 [facility] .[facility].181116 l .8 2020-08-08 2020-08-08 Emergency E LAWSON, [facility] [address] 08:57:00 10:44:00 LINDSAYJOYCELYN Ordoñez l [facility] 2020-08-03 2020-08-03 Emergency TIRMIZI, [place] [id number] [place] 00:00:00 00:00:00 AATIF 398 Method i 2020-07-31 2020-07-31 Emergency [place] [address] [id number] [place] 00:00:00 00:00:00 546 Method i 2020-07-30 2020-07-30 Emergency [place] [id number] [id number] [place] 00:00:00 00:00:00 764 Method i 2020-07-18 2020-07-18 Emergency E LASHAY, [facility] [id number] Mem[place] 05:23:00 06:35:00 [facility]ONEL [facility] 2020-04-07 2020-04-07 Emergency E FREDY, [facility] [id number] 08:06:00 09:42:00 NU [facility]ez [facility] 2016-06-04 2016-06-04 Emergency E SARAH FINE [facility] [id number] [place] 03:02:00 05:10:00 [facility]ica [facility] Center Results [...] ng/mL Barbiturates 200 ng/mL Opiates 2000 ng/mL [id number] 05:06:00 Test Item Value Reference Range Interpretation [...] RANGE) change in reference range COMPREHENSIVE METABOLIC [id number] 04:26:00 Test Item Value Reference Range Interpretation [...] code = 31A) 13 IU/L <=78 CARDIAC [id number] 04:20:00 Test Item Value Reference Range Interpretation Comments TROPONIN I (test code = A84) <0.015 ng/mL 0.000-0.045 CKMB (test code = A49) 2.9 ng/mL <=3.6 CPK (test code = 32A) 119 IU/L 39-308 [id number] 04:04:00 Test Item Value Reference Range Interpretation Comments D-DIMER (test code = <200 ng/mL D-DU 0-234 DDI) D-DIMER COMMENT (test *Level to rule out code = DDCOM) DVT or PE: <235 ng/mL D-DU* PRO TIME AND [id number] 04:04:00 Test Item Value Reference Range Interpretation [...] = RBCMOR) NORMAL XR CHEST 1 VIEW [id number] 03:42:38CHEST RADIOGRAPH: After hours services performed at 0327 hours. LOCATION: [id number]: Chest pain.C OMPARISON: 12/30/15.TECHNIQUE: Single portable AP radiograph of the chest.FINDINGS:No focal airspaceconsolidation or pneumothorax is visualized. Thecardiomediastinal silhouette is normal.IMPRESSION:Noacute cardiopulmonary disease.
[2022-11-27] MEDS ORDERED: NA CHLORIDE 0.9% 100 ML ONE (23:57)
[2022-11-27] MEDS ORDERED: LEVETIRACETAM 500 MG/5 ML VIAL IV ONE (23:57)
[2022-11-28 00:01] LABS: Specific Gravity 1.029 (1.005-1.030); Urine Bacteria <20 /HPF (<20); Urine Bilirubin NEGATIVE (Negative); Urine Blood Negative (Negative); Urine Clarity Clear (Clear); Urine Color Yellow (Yellow); Urine Glucose NEGATIVE (Negative); Urine Mucus 1+ /HPF (None Seen); Urine Protein TRACE (Negative); Urine RBC <5 /HPF (None Seen); Urine Urobilinogen 1+ (Normal); Urine pH 5.5 (5.0-7.0)
[2022-11-28 00:05] LABS: Absolute Lymphocytes (CBC) 3.6 K/uL (0.7-4.9); Barbiturates NEGATIVE (NEGATIVE); Benzodiazepines NEGATIVE (NEGATIVE); Cocaine POSITIVE (NEGATIVE); Hematocrit 40.2 % (39.6-49.0); MCV 90.4 fL (80-100); METHAMPHETAM NEGATIVE (NEGATIVE); MPV 7.7 fL (7.6-11.3); Methadone ND (NEGATIVE); Opiates NEGATIVE (NEGATIVE); Phencyclidine NEGATIVE (NEGATIVE); Platelets 246 thou/uL (152-406); RBC Red Blood Cell Count 4.45 M/uL (4.33-5.43); THC Cannibis NEGATIVE (NEGATIVE)
[2022-11-28 00:07] LABS: Protime INR 1.05
[2022-11-28 00:15] LABS: ALT/SGPT 23 U/L (16-61); AST/SGOT 14 U/L (15-37); Alkaline Phosphatase 85 U/L (45-117); BUN Blood Urea Nitrogen 17 mg/dL (7-18); Bicarbonate 31 mEq/L (21-32); Bilirubin Direct 0.2 mg/dL (0-0.2); Bilirubin Indirect, Calculated 0.7 mg/dL (0.2-0.8); Bilirubin Total 0.9 mg/dL (0.2-1.0); Glomerular Filtration Rate 95 ml/min (=/>90); Glucose Level 112 mg/dL (74-106); Lipase 38 U/L (13-75); Magnesium 2.5 mg/dL (1.6-2.4); NT PRO-BNP 60 pg/mL (<125); Potassium 3.4 mEq/L (3.5-5.1); Protein, Total 7.3 g/dL (6.4-8.2); Sodium Level 138 mEq/L (136-145); Troponin High Sensitivity 11.4 pg/mL (<58.9)
--- NOTE | 2022-11-28 00:44 | ER ---
Nurse's Notes [facility] Name: Blue Rodriguez Age: 51 yrs Sex: Male : 1970 Arrival Date: 11/27/2022 Time: 21:46 Bed 8 Private MD: Diagnosis: Epileptic seizures related to external causes, not intractable;Epileptic seizures related to external causes, not intractable, without status epilepticus;Hypokalemia;Cocaine abuse Presentation: 11/27 22:21 Chief complaint: Patient states: HIS SISTER TOLD HIM HE HAD A SZ ABOUT 6P. SHE TOLD HIM jj7 HE WAS IN HIS CAR AND LOOKED LIKE HE WAS HAVING A SZ. NO SZ HX. Coronavirus screen: At this time, the client does not indicate any symptoms associated with coronavirus-19. Ebola Screen: No symptoms or risks identified at this time. Initial Sepsis Screen: Does the patient meet any 2 criteria? No. Patient's initial sepsis screen is negative. Does the patient have a suspected source of infection? No. Patient's initial sepsis screen is negative. Risk Assessment: Do you want to hurt yourself or someone else? Patient reports no desire to harm self or others. Onset of symptoms was November 27, 2022 at 18:00. 22:21 Method Of Arrival: Ambulatory [facility] 22:21 Acuity: KYUNG 3 jj7 Triage Assessment: 22:25 General: Appears in no apparent distress. comfortable, Behavior is calm, cooperative, jj7 appropriate for age. Pain: Complains of pain in head Pain currently is 8 out of 10 on a pain scale. EENT: Reports pain HEADACHE. Historical: - Allergies: 22:25 No Known Allergies; jj7 - PMHx: 22:25 None; jj7 - PSHx: 22:25 None; jj7 - Immunization history:: Adult Immunizations not up to date, Client reports having NOT received the Covid vaccine. - Social history:: Smoking status: Patient reports the use of cigarette tobacco products, smokes one-half pack cigarettes per day, Patient/guardian denies using alcohol, street drugs. - Family history:: not pertinent. Screenin:25 [facility] ED Fall Risk Assessment (Adult) History of falling in the last 3 months, cm10 including since admission No falls in past 3 months (0 pts) Confusion or Disorientation No (0 pts) Intoxicated or Sedated No (0 pts) Impaired Gait No (0 pts) Mobility Assist Device Used No (0 pt) Altered Elimination No (0 pt) Score/Fall Risk Level 0 - 2 = Low Risk Oriented to surroundings, Maintained a safe environment, Hourly rounding (assess needs \T\ fall precautionary measures) done. Abuse screen: Denies threats or abuse. Denies injuries from another. Nutritional screening: No deficits noted. Tuberculosis screening: No symptoms or risk factors identified. Assessment: 11/28 00:00 Reassessment: Patient appears in no apparent distress at this time. Patient and/or cm10 family updated on plan of care and expected duration. Pain level reassessed. Patient is alert, oriented x 3, equal unlabored respirations, skin warm/dry/pink. Patient states feeling better. Patient states symptoms have improved. 01:00 Reassessment: Patient appears in no apparent distress at this time. Patient and/or cm10 family updated on plan of care and expected duration. Pain level reassessed. Patient is alert, oriented x 3, equal unlabored respirations, skin warm/dry/pink. Patient states feeling better. Patient states symptoms have improved. Vital Signs: 11/27 22:21 BP 117 / 81; Pulse 69; Resp 20; Temp 98.1; Pulse Ox 98% ; Weight 63.5 kg; Height 5 ft. jj7 6 in. ; Pain 8/10; 22:30 BP 141 / 97; Pulse 71; Resp 16; Pulse Ox 97% on R/A; jb4 23:00 BP 121 / 69; Pulse 64; Resp 16; Pulse Ox 99% on R/A; jb4 11/28 00:30 BP 109 / 71; Pulse 69; Resp 16; Pulse Ox 100% on R/A; jb4 11/27 22:21 Body Mass Index 22.60 (63.50 kg, 167.64 cm) j7 11/27 22:21 Pain Scale: Adult j7 ED Course: 11/27 22:13 Patient arrived in ED. jj6 22:25 Triage completed. jj7 22:25 Arm band placed on right wrist. jj7 22:25 Patient has correct armband on for positive identification. Bed in low position. Call cm10 light in reach. Side rails up X2. Seizure precautions initiated. 22:48 Venkatesh Romero MD is Attending Physician. mukesh 23:07 CT Head Brain wo Cont In Process Unspecified. EDMS 23:31 XRAY Chest (1 view) In Process Unspecified. EDMS 23:42 Acetaminophen Sent. cm10 23:42 ETOH Level Sent. cm10 23:42 Ptt, Activated Sent. cm10 23:42 Salicylate Sent. cm10 23:42 Urinalysis w/ reflexes Sent. cm10 23:42 Urine Drug Screen Sent. cm10 23:42 Lipase Sent. cm10 23:42 Basic Metabolic Panel Sent. cm10 23:42 CBC with Diff Sent. cm10 23:42 LFT's Sent. cm10 23:42 Magnesium Sent. cm10 23:42 NT PRO-BNP Sent. cm10 23:43 PT-INR Sent. cm10 23:43 Troponin HS Sent. cm10 23:52 Initial lab(s) drawn, by hi, sent to lab. Inserted saline lock: 20 gauge in right cm10 antecubital area, using aseptic technique. Blood collected. 11/28 00:42 Shaun Quarles MD is Referral Physician. mukesh 01:01 No provider procedures requiring assistance completed. IV discontinued, intact, cm10 bleeding controlled, No redness/swelling at site. Pressure dressing applied. 01:02 Provided Education on: ER process and procedures. . cm10 Administered Medications: 11/27 23:42 Drug: NS 0.9% IV 1000 ml IV at 1 bolus Per protocol; 1000 mL bolus Route: IV; Rate: 1 cm10 bolus; Site: right antecubital; 23:52 Drug: Keppra IV 1000 mg IV at per protocol once Route: IV; Rate: per protocol; Site: cm10 right antecubital; 11/28 00:58 Drug: Potassium PO Effervescent Tablet 25 mEq PO once; dissolve in 4 ounces of water or cm10 juice Route: PO; 00:58 Follow up: Response: No adverse reaction cm10 Medication: 11/27 22:25 VIS not applicable for this client. cm10 Outcome: 11/28 00:43 Discharge ordered by . [facility] 01:02 Discharged to home ambulatory, cm10 01:02 Condition: good 01:02 Discharge instructions given to patient, Instructed on discharge instructions, follow up and referral plans. medication usage, Demonstrated understanding of instructions, follow-up care, medications, Prescriptions given X 1, 01:03 Patient left the ED. cm10 Signatures: Dispatcher [employer] Venkatesh Valdes MD MD cha Bryson, James, RN RN jb4 Rozina Rubioj6 Kayy Garcia RN RN jj7 Damaris Ochoa RN RN cm10
--- NOTE | 2022-11-28 00:44 | EDPHYS ---
Physician Documentation [facility] Name: Blue Rodriguez Age: 51 yrs Sex: Male : 1970 Arrival Date: 11/27/2022 Time: 21:46 Bed 8 Private MD: Venkatesh Gonzalez HPI: 11/27 23:27 This 51 yrs old Male presents to ER via Ambulatory with complaints of mukesh seizure, in car, hx of seizure. 23:27 The patient presents after having a single isolated seizure, that lasted 2 minute(s). mukesh Character of seizure(s): Loss of consciousness: the patient experienced loss of consciousness, Motor activity: generalized. Seizure onset: just prior to arrival, today. Context: the seizure(s) was witnessed, by family, sister. Seizure Hx: Last seizure: The patient's last seizure was approximately 10 year(s) ago. Associated injury: The patient did not suffer any apparent associated injury. Current symptoms: Currently, the patient is not experiencing any symptoms, the patient feels back to baseline. The patient has experienced a previous episode, approximately 10 years ago. Historical: - Allergies: 22:25 No Known Allergies; jj7 - PMHx: 22:25 None; jj7 - PSHx: 22:25 None; jj7 - Immunization history:: Adult Immunizations not up to date, Client reports having NOT received the Covid vaccine. - Social history:: Smoking status: Patient reports the use of cigarette tobacco products, smokes one-half pack cigarettes per day, Patient/guardian denies using alcohol, street drugs. - Family history:: not pertinent. ROS: 23:27 Constitutional: Negative for fever, chills, and weight loss, Eyes: Negative for injury, mukesh pain, redness, and discharge, ENT: Negative for injury, pain, and discharge, Neck: Negative for injury, pain, and swelling, Cardiovascular: Negative for chest pain, palpitations, and edema, Respiratory: Negative for shortness of breath, cough, wheezing, and pleuritic chest pain, Abdomen/GI: Negative for abdominal pain, nausea, vomiting, diarrhea, and constipation, Back: Negative for injury and pain, : Negative for injury, bleeding, discharge, and swelling, MS/Extremity: Negative for injury and deformity, Skin: Negative for injury, rash, and discoloration, Psych: Negative for depression, anxiety, suicide ideation, homicidal ideation, and hallucinations, Allergy/Immunology: Negative for hives, rash, and allergies, Endocrine: Negative for neck swelling, polydipsia, polyuria, polyphagia, and marked weight changes, Hematologic/Lymphatic: Negative for swollen nodes, abnormal bleeding, and unusual bruising, 23:27 Neuro: Positive for seizure activity, Exam: 23:27 Constitutional: This is a well developed, well nourished patient who is awake, alert, mukesh and in no acute distress. Head/Face: Normocephalic, atraumatic. Eyes: Pupils equal round and reactive to light, extra-ocular motions intact. Lids and lashes normal. Conjunctiva and sclera are non-icteric and not injected. Cornea within normal limits. Periorbital areas with no swelling, redness, or edema. ENT: Nares patent. No nasal discharge, no septal abnormalities noted. Tympanic membranes are normal and external auditory canals are clear. Oropharynx with no redness, swelling, or masses, exudates, or evidence of obstruction, uvula midline. Mucous membranes moist. Neck: Trachea midline, no thyromegaly or masses palpated, and no cervical lymphadenopathy. Supple, full range of motion without nuchal rigidity, or vertebral point tenderness. No Meningismus. Chest/axilla: Normal chest wall appearance and motion. Nontender with no deformity. No lesions are appreciated. Cardiovascular: Regular rate and rhythm with a normal S1 and S2. No gallops, murmurs, or rubs. Normal PMI, no JVD. No pulse deficits. Respiratory: Lungs have equal breath sounds bilaterally, clear to auscultation and percussion. No rales, rhonchi or wheezes noted. No increased work of breathing, no retractions or nasal flaring. Abdomen/GI: Soft, non-tender, with normal bowel sounds. No distension or tympany. No guarding or rebound. No evidence of tenderness throughout. Back: No spinal tenderness. No costovertebral tenderness. Full range of motion. Male : Normal genitalia with no discharge or lesions. Skin: Warm, dry with normal turgor. Normal color with no rashes, no lesions, and no evidence of cellulitis. MS/ Extremity: Pulses equal, no cyanosis. Neurovascular intact. Full, normal range of motion. Neuro: Awake and alert, GCS 15, oriented to person, place, time, and situation. Cranial nerves II-XII grossly intact. Motor strength 5/5 in all extremities. Sensory grossly intact. Cerebellar exam normal. Normal gait. Psych: Awake, alert, with orientation to person, place and time. Behavior, mood, and affect are within normal limits. 11/28 00:29 ECG was reviewed by the Attending Physician. [facility] Vital Signs: 11/27 22:21 BP 117 / 81; Pulse 69; Resp 20; Temp 98.1; Pulse Ox 98% ; Weight 63.5 kg; Height 5 ft. jj7 6 in. ; Pain 8/10; 22:30 BP 141 / 97; Pulse 71; Resp 16; Pulse Ox 97% on R/A; jb4 23:00 BP 121 / 69; Pulse 64; Resp 16; Pulse Ox 99% on R/A; jb4 11/28 00:30 BP 109 / 71; Pulse 69; Resp 16; Pulse Ox 100% on R/A; jb4 11/27 22:21 Body Mass Index 22.60 (63.50 kg, 167.64 cm) [facility] 11/27 22:21 Pain Scale: Adult jj7 MDM: 11/27 22:48 Patient medically screened. mukesh 23:32 Differential diagnosis: cerebral vascular accident, drug overdose, cardiac arrhythmia, mukesh seizure. Data reviewed: vital signs, nurses notes, EMS record, lab test result(s), EKG, radiologic studies, CT scan. Consideration of Admission/Observation Escalation of care including admission/observation considered. I considered the following discharge prescriptions or medication management in the emergency department Medications were administered in the Emergency Department. See MAR. Independent interpretation of the following test(s) in the Emergency Department EKG: See my EKG interpretation above. Test considered but Not performed: MRI: no mri, no eeg. Historians other than the Patient: pt good historian. Care significantly affected by the following chronic conditions: seiziure. Counseling: I had a detailed discussion with the patient and/or guardian regarding the historical points, exam findings, and any diagnostic results supporting the discharge/admit diagnosis, lab results, radiology results, the need for outpatient follow up, for definitive care, a family practitioner, a neurologist. 11/27 22:49 Order name: Basic Metabolic Panel; Complete Time: 00:42 mukesh 11/27 22:49 Order name: CBC with Diff; Complete Time: 00:42 [facility] 11/27 22:49 Order name: LFT's; Complete Time: 00:42 [facility] 11/27 22:49 Order name: Magnesium; Complete Time: 00:42 [facility] 11/27 22:49 Order name: NT PRO-BNP; Complete Time: 00:42 [facility] 11/27 22:49 Order name: PT-INR; Complete Time: 00:42 [facility] 11/27 22:49 Order name: Troponin HS; Complete Time: 00:42 [facility] 11/27 22:49 Order name: Lipase; Complete Time: 00:42 [facility] 11/27 22:49 Order name: Acetaminophen; Complete Time: 00:42 [facility] 11/27 22:49 Order name: ETOH Level; Complete Time: 00:42 [facility] 11/27 22:49 Order name: Ptt, Activated; Complete Time: 00:42 [facility] 11/27 22:49 Order name: Salicylate; Complete Time: 00:42 [facility] 11/27 22:49 Order name: Urinalysis w/ reflexes; Complete Time: 00:42 [facility] 11/27 22:49 Order name: Urine Drug Screen; Complete Time: 00:42 [facility] 11/27 22:49 Order name: XRAY Chest (1 view) 11/27 22:49 Order name: CT Head Brain wo Cont 11/27 22:49 Order name: EKG; Complete Time: 22:50 [facility] 11/27 22:49 Order name: Cardiac monitoring; Complete Time: 00:29 [facility] 11/27 22:49 Order name: EKG - Nurse/Tech; Complete Time: 00:29 [facility] 11/27 22:49 Order name: IV Saline Lock; Complete Time: 23:43 [facility] 11/27 22:49 Order name: Labs collected and sent; Complete Time: 23:43 [facility] 11/27 22:49 Order name: O2 Per Protocol; Complete Time: 23:43 [facility] 11/27 22:49 Order name: O2 Sat Monitoring; Complete Time: 23:43 [facility] 11/27 22:49 Order name: Suicide Screening ([place]); Complete Time: 00:29 [facility] 11/27 22:49 Order name: Seizure Precautions; Complete Time: 23:42 [facility] 11/28 00:42 Order name: PO challenge: juice; Complete Time: 00:52 [facility] EC/17 00:29 Rate is 60 beats/min. Rhythm is regular. QRS [place] is Normal. [place] interval is normal. QRS mukesh interval is normal. QT interval is normal. No Q waves. T waves are Normal. No ST changes noted. Clinical impression: NSR w/ Non-specific ST/T Changes and No evidence of ischemia. Interpreted by me. Reviewed by me. Administered Medications: 11/27 23:42 Drug: NS 0.9% IV 1000 ml IV at 1 bolus Per protocol; 1000 mL bolus Route: IV; Rate: 1 cm10 bolus; Site: right antecubital; 23:52 Drug: Keppra IV 1000 mg IV at per protocol once Route: IV; Rate: per protocol; Site: cm10 right antecubital; 11/28 00:58 Drug: Potassium PO Effervescent Tablet 25 mEq PO once; dissolve in 4 ounces of water or cm10 juice Route: PO; 00:58 Follow up: Response: No adverse reaction cm10 Disposition Summary: 11/28/22 00:43 Discharge Ordered Notes: Location: Home mukesh Problem: new mukesh Symptoms: have improved mukesh Condition: Stable mukesh Diagnosis - Epileptic seizures related to external causes, not intractable mukesh - Epileptic seizures related to external causes, not intractable, without status mukesh epilepticus - Hypokalemia mukesh - Cocaine abuse mukesh Followup: mukesh - With: Private Physician - When: 2 - 3 days - Reason: Recheck today's complaints, Continuance of care, Re-evaluation by your physician Followup: mukesh - With: Shaun Quarles MD - When: 2 - 3 days - Reason: Recheck today's complaints, Re-evaluation by your physician Discharge Instructions: - Discharge Summary Sheet mukesh - Cocaine Use Disorder mukesh - Potassium Content of Foods mukesh - Electroencephalogram, Adult mukesh - Epilepsy mukesh - Seizure, Adult mukesh - Seizure, Adult, [id number] mukesh - Epilepsy, [id number] mukesh - Hypokalemia mukesh Forms: - Medication Reconciliation Form mukesh - Thank You Letter mukesh - Antibiotic Education mukesh - Prescription Opioid Use mukesh - Patient Portal Instructions mukesh - Leadership Thank You Letter mukesh - Work release form hb Prescriptions: - Keppra 500 mg Oral Tablet - take 1 tablet ORAL route every 12 hours; 20 tablet; Refills: 0, Product mukesh Selection Permitted Signatures: Dispatcher [employer] Venkatesh Valdes MD MD cha Johnson, Juwairiyah, RN RN jj7 Damaris Ochoa, RN RN cm10
[2022-11-28] MEDS ORDERED: POTASSIUM 25 MEQ EFFERV TAB ONE (01:00)
[2022-11-28 01:27] VITALS: TEMP 98.1
[2022-11-28 01:46] VITALS: BP 109/71; O2SAT 100
--- NOTE | 2022-11-28 11:19 | EKG ---
Test Date: 2022-11-28 Test Time: 00:25:58 [employer]: ARIA MEASUREMENT RESULTS: Intervals: Rate: 60 MS: 160 QRSD: 88 QT: 460 QTc: 460 [place]: P: 61 MS: 160 QRS: 79 T: 54 INTERPRETIVE STATEMENTS: Normal sinus rhythm Normal ECG No previous ECG available for comparison Electronically Signed On 11-28-22 11:17:35 CDT by Cameron Fallon
--- NOTE | 2022-11-28 12:55 | RAD REPORT ---
EXAM DESCRIPTION: Head Brain Wo Cont CLINICAL HISTORY: 51-year-old male with headache. COMPARISON: None. TECHNIQUE: CT brain without contrast. This exam was performed according to our departmental dose opt imization program which includes use of automated exposure control, adjustment of the mA and/or kV ac cording to patient size and/or use of iterative reconstruction technique. FINDINGS: The ventricles, sulci, and cisterns are within normal limits. The simms-white matter diff erentiation is preserved. There is no mass effect, midline shift, intra- or extra-axial fluid colle ction/acute hemorrhage. The osseous structures are unremarkable. The paranasal sinuses and mastoi d air cells are clear. IMPRESSION: No acute intracranial abnormalities. Electronically signed by: Lucero Mathew MD 11/28/2022 12:20 AM CDT Due to temporary technical issues with the PACS/Fluency reporting system, reports are being signed by the in house radiologists without review as a courtesy to insure prompt reporting. The interpreting radiologist is fully responsible for the content of the report.
--- NOTE | 2022-11-28 13:13 | RAD REPORT ---
EXAM DESCRIPTION: XR Chest, 1 View CLINICAL HISTORY: The patient is 51 years old and is Male; COUGH TECHNIQUE: Frontal view of the chest. COMPARISON: No relevant prior studies available. FINDINGS: Lungs: Unremarkable. No consolidation. Pleural space: Unremarkable. No pneumothorax. Heart: Unremarkable. Mediastinum: Unremarkable. Bones/joints: No acute findings. IMPRESSION: No acute findings in the chest. Electronically signed by: Sj Allen MD 11/28/2022 12:08 AM CDT Due to temporary technical issues with the PACS/Fluency reporting system, reports are being signed by the in house radiologists without review as a courtesy to insure prompt reporting. The interpreting radiologist is fully responsible for the content of the report.
== END 2022-11-28 01:03 | disposition home or self-care (01) ==
LOC: ER 21:46
DX: G40.509 Epileptic seizures related to external causes, not intractable, without status epilepticus (principal); E87.6 Hypokalemia; F14.10 Cocaine abuse, uncomplicated; F17.210 Nicotine dependence, cigarettes, uncomplicated
CPT/HCPCS: 36415; 70450; 71045; 80048; 80076; 80143; 80179; 80307; 81001; 82077; 83690; 83735; 83880; 84484; 85025; 85610; 85730; 93005; 96374; 99284; J1953